=== PATIENT | male | born 1975 | race Caucasian/White ===

== ENCOUNTER 2020-09-01 20:37 | Observation (INO) | payer BC, OTHER ==
[~2020-09-01] VITALS: Ht 172.7 cm; Wt 64.9 kg
[~2020-09-01 20:37] MED LIST: IBUPROFEN600 MG PO; WELLBUTRIN SR100 MG PO
--- NOTE | 2020-09-02 00:19 | NUR ---
PT'S ARRIVED AT [facility] VIA STRETCHER. HE MOVED OVER TO BED SBA. HE ALSO USED URINAL. TELE # [address] IN NSR. ADMISSION HX COMPLETE. PT'S IS NOW IS THE ROOM, SHE BROUGHT PT A SANDWICH FROM [facility]. PT REPORTS A HEADACHE AND WOULD LIKE TYLENOL. HE DENIES FURTHER NEEDS. CALL LIGHT IS CLOSE. NOTIFIED PRIMARY RN JEANINE THAT PT WOULD LIKE TYLENOL.
--- NOTE | 2020-09-02 00:28 | NUR ---
ASSESSMENT COMPLETED. PT STATES HE HAS 5/10 RUIZ, PRN PAIN MED PROVIDED. GCS 15, A&O X4. LUNGS CLEAR, HEART TONES REGULAR TELE HR SR @ 60. ABD SOFT, NONTENDER, PT STATES NORMAL, BOWEL TONES ACTIVE. CMS INTACT. PT HAS AN ABRASION AND BRUISE ON LEFT ELBOW. IV CDI, WNL, FLUSHED WELL. NO OTHER NEEDS AT THIS TIME. CALL LIGHT IN REACH.. IN ROOM.
--- NOTE | 2020-09-02 02:20 | NUR ---
PT RESTING IN BED, EYES CLOSED. CALL LIGHT IN REACH.
--- NOTE | 2020-09-02 03:59 | NUR ---
in to get vitals with rn, fresh ice water filled, pt denies need to void at this time, no further needs
--- NOTE | 2020-09-02 04:00 | NUR ---
ASSESSMENT, VS AND I&O COMPLETED. TELE SR @ 60. GCS 15, A&O X4. LUNGS CLEAR, HEART TONES REGULAR. ABD SOFT, NONTENDER, PT STATES NORMAL, BOWEL TONES ACTIVE. CMS INTACT. BRUISE AND ABRASION ON LEFT ELBOW UNCHANGED. PT DENIES NEED TO USE BR AT THIS TIME. IV WNL. PT DENEIS PAIN. NO OTHER NEEDS AT THIS TIME. ICE WATER PROVIDED. CALL LIGHT IN REACH.
--- NOTE | 2020-09-02 06:14 | NUR ---
PT RESTING IN BED, EYES CLOSED. RR EVEN, UNLABORED. CALL LIGHT IN REACH.
--- NOTE | 2020-09-02 09:19 | NUR ---
MED REC COMPLETE
--- NOTE | 2020-09-02 09:50 | NUR ---
HEAD TO TOE ASSESSMENT COMPLETE. PT HAS NO ABNORMALITIES IN NEURO CHECKS. PUPILS ARE PERRLA, FACIAL SYMMETRY, PALEONTOLOGY TEACHER EQUAL STRENGTH ALONG W/ BLE STRENGTH. PT DENIES PAIN OR NAUSEA, REFUSING NEED FOR ANY TYLENOL AT THIS TIME. SMALL QUARTER SIZE AREA OF FAINT REDNESS TO SCALP WHERE PT HIT HEAD DURING FALL YESTERDAY, PT DENIES SORENESS TO TOUCH. DR LARES IN TO SEE PT AND ORDERS TO BUMP MRI TIME UP EARLIER TO 11 AM INSTEAD OF 1 PM. IMAGING NOTIFIED. TELE SHOWS SINUS RHYTHM, ZACH IN 50'S WHEN ASLEEP. PT STATES HE SLEPT WELL AND WOULD LIKE TO GO HOME. INDEPENDENT IN ROOM. CALLED AND UPDATED.
--- NOTE | 2020-09-02 11:00 | NUR ---
TELE LEADS REMOVED AND PT TAKEN TO IMAGING FOR MRI.
--- NOTE | 2020-09-02 12:11 | NUR ---
PT ALERT, ORIENTED, SITTING UP IN BED EATING LUNCH. PT SEEMS VERY INTERESTED IN LUNCH, NOT MUCH FOR VISIT. GAVE ENCOURAGEMENT AND G.POST. WILL FOLLOW NEEDED
--- NOTE | 2020-09-02 12:30 | NUR ---
PT BACK FROM MRI AND IN ROOM. MRI RESULTS BACK AND DR LARES REVIEWED. PT LIKELY TO DC THIS AFTERNOON.
--- NOTE | 2020-09-02 13:29 | EKG ---
[facility] [address] [facility] [place], [place] [address] Signed Normal sinus rhythm with sinus arrhythmia Normal ECG No previous ECGs available Confirmed by MARGOT LARES DO ([id number]) on 09/02/2020 1:29:02 PM Electronically Signed By: MARGOT LARES DO 09/02/20 1329 PATIENT NAME: RANDALLKVNG DEREK Electrocardiogram DATE OF : 79 PHYSICIAN: MARGOT LARES DO REPORT #: [id number] REPORT IS CONFIDENTIAL AND NOT TO BE RELEASED WITHOUT AUTHORIZATION
--- NOTE | 2020-09-02 13:30 | NUR ---
IV IN LAC REMOVED CATH INTACT. VSS. PT STABLE AND AMBULATORY. EDUCATED ON F/U APPT. PT NOT TAKING ANY HOME MEDS, PHARMACY IN. PT DC'D W/ .
--- NOTE | 2020-09-02 14:30 | NUR ---
Pt lives with Izzy in a 1 story house without steps. Does not use any DME. States he is good health. Denies any needs and plans on dc to home following MRI. He works at the [employer]. No financial concerns.
== END 2020-09-02 13:30 | disposition home or self-care (01) ==
LOC: ED 20:37 → MS 20:38
PROVIDERS: ADMIT Student in an Organized Health Care Education/Training Program; ATTEND Student in an Organized Health Care Education/Training Program
DX: R55 Syncope and collapse (principal); R20.0 Anesthesia of skin; R20.2 Paresthesia of skin; S06.0X9A Concussion with loss of consciousness of unspecified duration, initial encounter; W19.XXXA Unspecified fall, initial encounter; Z20.822 Contact with and (suspected) exposure to COVID-19
CPT/HCPCS: 70450; 70496; 70498; 70551; 71045; 80053; 80061; 83036; 84484; 85025; 85610; 85730; 93005; 93010; 99285-25; C9803; G0378; Q9967; U0003

== ENCOUNTER 2022-10-20 22:49 | Emergency (ER) | payer OTHER ==
[~2022-10-20] VITALS: Ht 172.7 cm; Wt 65.8 kg
--- NOTE | ~2022-10-20 | EKG ---
[facility] [place] [facility] [address] [facility] [place], [place] [address] Draft EK completed, results pending confirmation PATIENT NAME: KVNG RANDALL Electrocardiogram DATE OF : 79 PHYSICIAN: PRELIMINARY REPORT #: [id number] REPORT IS CONFIDENTIAL AND NOT TO BE RELEASED WITHOUT AUTHORIZATION
[2022-10-21 01:31] VITALS: BP 120/70
--- NOTE | 2022-10-21 13:18 | EKG ---
[facility] [address] [facility] [place], [place] [address] Signed Normal sinus rhythm Normal ECG When compared with ECG of 01-SEP-2020 21:02, No significant change was found Confirmed by BERNADINE NANE MD ([id number]) on 10/21/2022 1:18:13 PM Electronically Signed By: BERNADINE ANNE 10/21/22 1318 PATIENT NAME: KVNG RANDALL DEREK Electrocardiogram DATE OF : [birth year] PHYSICIAN: BERNADINE ANNE REPORT #: [id number] REPORT IS CONFIDENTIAL AND NOT TO BE RELEASED WITHOUT AUTHORIZATION
== END 2022-10-21 01:32 | disposition home or self-care (01) ==
LOC: ED 22:49
DX: R07.89 Other chest pain (principal)
CPT/HCPCS: 36415; 71045; 80053; 83735; 84484; 85025; 85610; 93005; 93010; G0480

== ENCOUNTER 2024-03-23 11:59 | Day surgery (SDC) | payer OTHER ==
[~2024-03-23] VITALS: Ht 170.2 cm; Wt 69.1 kg
[~2024-03-23 11:59] MED LIST changes: +IBLOOD GLUCOSE TEST STRIP 1 EA TEST VI PRN; +LACTATED RINGER'S 1,000 ML IV SCH; +LIDOCAINE HCL 1% 5 ML SDV INJ ONE; +LIDOCAINE HCL 4% 50 ML BTL TOP SCH; +MIDAZOLAM HCL 5 MG/5 ML VIAL ONE; +OMEPRAZOLE20 MG PO; +fentaNYL citrate 100 MCG/2 ML VIAL ONE
[2024-03-23 12:15] VITALS: BP 126/74
[2024-03-23 14:07] VITALS: BP 116/77
--- NOTE | 2024-03-23 14:09 | NUR ---
03/23/24 1409 Kaylyn Valenzuela 1335 PT ARRIVED IN PACU SLEEPY. 1345 DR AT BEDSIDE. ALL QUESTIONS ANSWERED. 1350 SIPPING ON JUICE. DC INSTRUCTIONS GIVEN. 1402 LEFT VIA W/C.
--- NOTE | 2024-03-23 15:12 | OR ---
[facility] [address] [place], [place] [address] Signed DATE OF OPERATION: 03/23/2024 SURGEON: Rickey Denton MD PREOPERATIVE DIAGNOSES: History of duodenal ulcer and severe ulcerative esophagitis. POSTOPERATIVE DIAGNOSES: No evidence of duodenal ulcer; much improved distal esophagus. Mild chronic inflammation. PROCEDURE: Esophagogastroduodenoscopy with biopsy. ANESTHESIA: Intravenous sedation; fentanyl 100 mcg and Versed 4 mg. INDICATION: This 48-year-old white man is a patient of Olamide Bergeron. He was noted to have epigastric pain and underwent upper endoscopy on August 27, 2023, which showed severe ulcerative esophagitis and duodenal ulceration. He was treated with PPI medication Prilosec, which has essentially resolved his symptoms entirely. He has no current complaints of dysphagia, hematemesis, or other issue. Esophagitis that was noted was quite severe. This was a duodenal ulceration. On the basis of those findings, I have recommended upper endoscopy to assure resolution of the problem. He understands the risk of bleeding, infection, perforation, and so forth and wished to proceed. FINDINGS: Much improvement of the distal esophagitis was noted, though there still was some. There was no clear evidence of problematic Ferguson's epithelium. There was a poor flap valve consistent with small hiatal hernia. There was mild antral edema, but no sign of ulceration and the duodenum in all portions was entirely normal. Biopsies were taken throughout. CLOtest was -15 minutes post procedure. As regards to the esophagus, it did have distal ulceration to a minimal degree but nothing compared to the past and a hiatal area was consistent with hiatal hernia. DESCRIPTION OF PROCEDURE: The patient was brought to the endoscopy suite and placed in the lateral decubitus position after undergoing topical lidocaine hypopharyngeal anesthesia. A bite block was placed. Electronically Signed By: RICKEY DENTON MD 03/23/24 1512 PATIENT NAME: KVNG RANDALL OPERATIVE REPORT DATE OF : 79 REPORT #: [id number] PHYSICIAN: RICKEY DENTON MD PCP: OLAMIDE BERGERON REPORT IS CONFIDENTIAL AND NOT TO BE RELEASED WITHOUT AUTHORIZATION [facility] [address] [place], [place] [address] Signed An Olympus video upper endoscope was passed in the hypopharynx. The vocal cords appeared normal. Scope was advanced to the esophagus. Most proximal portions were entirely normal. The distal portion did show mild inflammation but not much and certainly much improved compared to previous upper endoscopy. There was no sign of stricture or Ferguson's epithelium proper. The scope was passed to the stomach which was insufflated with air. There was no sign of gastric bile. Rugal folds were normal. The antrum was somewhat edematous, but without ulceration or erosion. The pylorus was normal. Scope was passed through into the duodenum. The 3rd, 2nd, and bulbar portions were all normal. Biopsies were taken of the bulbar portion nevertheless. The scope was withdrawn and biopsies taken of the antrum for both KIM and pathologic testing. Retroflexed view and withdrawal of the scope confirmed a poor flap valve consistent with small hiatal hernia. The scope was straightened and withdrawn. A biopsy was then taken of the distal esophagus. Further withdrawal showed no other abnormality and certainly no worrisome findings in the mid or upper esophagus. The patient was taken to the recovery room in good condition having suffered no complication. CONCLUDING DIAGNOSIS: Much improved distal ulcerative esophagitis with hiatal hernia. PLAN: Recommend continued use of omeprazole 20 mg p.o. daily. I would like to see the patient back in the office in a year or so. If he has problems in the meantime, he will let me know. MD MAGGIE Olvera/ELSAL /[id number] cc: MAURO Norman Electronically Signed By: RICKEY DENTON MD 03/23/24 1512 PATIENT NAME: KVNG RANDALL OPERATIVE REPORT DATE OF : 79 REPORT #: [id number] PHYSICIAN: RICKEY DENTON MD PCP: OLAMIDE BERGERON REPORT IS CONFIDENTIAL AND NOT TO BE RELEASED WITHOUT AUTHORIZATION [facility] [address] [place] [id number] Signed Copies: OLAMIDE BERGERON ~ Electronically Signed By: RICKEY DENTON MD 03/23/24 1512 PATIENT NAME: KVNG RANDALL OPERATIVE REPORT DATE OF : [birth year] REPORT #: [id number] PHYSICIAN: RICKEY DENTON MD PCP: OLAMIDE BERGERON REPORT IS CONFIDENTIAL AND NOT TO BE RELEASED WITHOUT AUTHORIZATION
--- NOTE | 2024-03-25 15:29 | PATH ---
[facility] [address] [place], [place] [address] Signed SPECIMEN(S): A DUODENAL BIOPSY SPECIMEN(S): B ANTRUM/PYLORUS SPECIMEN(S): C LOWER ESOPHAGUS BIOPSY SPECIMEN SOURCE: A. DUODENAL BIOPSY B. ANTRUM/PYLORUS C. LOWER ESOPHAGUS BIOPSY CLINICAL HISTORY: Pre-: Reflux, epigastric pain, history of duodenal ulcer. Post: Improved distal esophagus, hiatal hernia FINAL PATHOLOGIC DIAGNOSIS: A. Duodenal, biopsy: - Benign duodenal mucosa, negative for specific diagnostic abnormality. B. Antrum/pylorus: - Benign gastric mucosa with focal slight chronic inflammation. - Negative for evidence of Helicobacter organisms on routine HE stained sections. C. Lower esophagus, biopsy: - Benign esophageal epithelium, negative for increased epithelial eosinophils. - Negative for glandular mucosa. JVR:cml MICROSCOPIC EXAMINATION: Histologic sections of all submitted blocks are examined by light microscopy. These findings, together with the gross examination, support the pathologic diagnosis. GROSS DESCRIPTION: A. The specimen, labeled and designated "Venus Webster, duodenal biopsy," is received in formalin and consists of two marsh soft tissue fragments, ranging from 0.3-0.4 cm. Entirely submitted in (A1). B. The specimen, labeled and designated "Darin, P, antrum/pylorus," is received in formalin and consists of two marsh soft tissue fragments, ranging from 0.3-0.5 cm. Entirely submitted in (B1). C. The specimen, labeled and designated "Darin, P, lower esophagus biopsy," is received in formalin and consists of three marsh soft tissue fragments, ranging from 0.3-0.4 cm. Entirely submitted in (C1). AB (under the direct supervision of a pathologist) PATIENT NAME: KVNG WEBSTER PATHOLOGY DATE OF : 79 REPORT #: [id number] PHYSICIAN: GEOVANY PATHOLOGY PCP: OLAMIDE TSE REPORT IS CONFIDENTIAL AND NOT TO BE RELEASED WITHOUT AUTHORIZATION [facility] [address] [facility] [place], [place] [address] Signed The Gross Description was prepared using a voice recognition system. The report was reviewed for accuracy; however, sound-alike word errors, addition and/or deletions may occur. If there is any question about this report, please contact Client Services. PERFORMING LABORATORY: Technical component was performed by [facility], [address] [place] [id number] (CLIA# [id number]). Professional interpretation was performed by [facility], [address] [place] [id number] (CLIA#: [id number]). Diagnostician: Manoj Salcedo MD Pathologist Electronically Signed 03/25/2024 Copies: ~ PATIENT NAME: KVNG WEBSTER PATHOLOGY DATE OF : [birth year] REPORT #: [id number] PHYSICIAN: GEOVANY PATHOLOGY PCP: OLAMIDE TSE REPORT IS CONFIDENTIAL AND NOT TO BE RELEASED WITHOUT AUTHORIZATION
== END 2024-03-23 14:02 | disposition home or self-care (01) ==
LOC: DS 11:59
PROVIDERS: ATTEND Surgery
PROC: 0DB68ZX Excision of Stomach, Via Natural or Artificial Opening Endoscopic, Diagnostic (ICD-10-PCS; 2024-03-23)
PROC: 0DB38ZX Excision of Lower Esophagus, Via Natural or Artificial Opening Endoscopic, Diagnostic (ICD-10-PCS; 2024-03-23)
PROC: 0DB98ZX Excision of Duodenum, Via Natural or Artificial Opening Endoscopic, Diagnostic (ICD-10-PCS; principal; 2024-03-23 13:00)
DX: K22.10 Ulcer of esophagus without bleeding (principal); K21.9 Gastro-esophageal reflux disease without esophagitis; K29.50 Unspecified chronic gastritis without bleeding; Z87.11 Personal history of peptic ulcer disease; F17.200 Nicotine dependence, unspecified, uncomplicated
CPT/HCPCS: 99153; G0500; J2250; J3010; J7121